=== PATIENT | female | born 1960 | race Hispanic/Latino ===

== ENCOUNTER → 2019-02-08 | Outpatient (CLI) | payer MEDICARE | END | disposition home or self-care (01) | LOC: OIH 12:51 | PROVIDERS: ATTEND Internal Medicine | DX: M19.041 Primary osteoarthritis, right hand (principal); M19.042 Primary osteoarthritis, left hand; N17.0 Acute kidney failure with tubular necrosis; M85.861 Other specified disorders of bone density and structure, right lower leg; M85.862 Other specified disorders of bone density and structure, left lower leg; M11.262 Other chondrocalcinosis, left knee; M11.261 Other chondrocalcinosis, right knee; M06.4 Inflammatory polyarthropathy | CPT/HCPCS: 73130; 73560 ==